=== PATIENT | male | born 1980 | race Caucasian/White ===

== ENCOUNTER → 2024-04-15 11:01 | Outpatient (REF) | payer OTHER, SELFPAY | LOC: HWRAD 11:01 | PROVIDERS: ATTENDING PHYSICIAN Student in an Organized Health Care Education/Training Program | DX: R10.2 Pelvic and perineal pain (principal); R10.32 Left lower quadrant pain; N50.819 Testicular pain, unspecified | CPT/HCPCS: 74177; Q9967 ==

== ENCOUNTER → 2024-04-24 09:45 | Outpatient (REF) | payer OTHER, SELFPAY | LOC: HWRAD 09:45 | PROVIDERS: ATTENDING PHYSICIAN Student in an Organized Health Care Education/Training Program | DX: R10.2 Pelvic and perineal pain (principal); R10.32 Left lower quadrant pain; N50.819 Testicular pain, unspecified | CPT/HCPCS: 76870; 93976 ==

== ENCOUNTER → 2024-06-05 09:51 | Outpatient (REF) | payer OTHER, SELFPAY | LOC: MRI 3T 09:51 | PROVIDERS: ATTENDING PHYSICIAN Student in an Organized Health Care Education/Training Program | DX: R10.84 Generalized abdominal pain (principal); R93.89 Abnormal findings on diagnostic imaging of other specified body structures | CPT/HCPCS: 74183; A9575 ==